=== PATIENT | male | born 1995 | race African-American/Black ===

== ENCOUNTER 2017-06-15 09:12 | Emergency (ER) | payer SELFPAY ==
[2017-06-15 09:18] VITALS: BP 140/81; PULSE 71; TEMP 98.1; BMI 25.6
[2017-06-15] MEDS ORDERED: TOBRAMYCIN 0.3% OPHTH SOLN 5 ML BOTTLE OS ONE (09:56)
[2017-06-15] MEDS ORDERED: ERYTHROMYCIN 0.5% OPHTHALMIC OINTMENT 3.5 GM TUBE OD ONE (09:56)
[2017-06-15] MEDS ORDERED: IBUPROFEN 600 MG TABLET (FP) PO ONE (09:57)
--- NOTE | 2017-06-15 10:01 | PDOC ---
History of Present Illness - General Chief Complaint: Eye Problem Stated Complaint: FOREIGN SUBSTANCE IN EYE Time Seen by Provider: 06/15/17 09:42 History Source: Patient Exam Limitations: No Limitations - History of Present Illness Initial Comments: 06/15/17 10:08 22 yr male with c/o red irritated eyes for one week after getting grease cutter solution in his eyes at work. Pt states he splashed it in his eyes at work accidentaly. Pt rubbed eyes now feels like there is sand in eyes with light sensitivity. Past History - Past Medical History Allergies/Adverse Reactions: Allergies Allergy/AdvReac Type Severity Reaction Status Date / Time No Known Allergies Allergy Verified 06/15/17 09:18 Home Medications: Ambulatory Orders Erythromycin 0.5% Eye Ointment [Erythromycin 0.5% Eye Ointment -] 1 applic OD QID #1 tube 06/15/17 Tobramycin 0.3% Ophth Soln [Tobrex Ophthalmic Solution -] 1 drop OS Q4HWA #1 bottle 06/15/17 Other medical history: NONE - Surgical History Abdominal Surgery: Yes (HERNIA) - Psycho/Social/Smoking Cessation Hx Suicidal Ideation: No Smoking History: Never smoked Hx Alcohol Use: Yes (SOCIAL) Drug/Substance Use Hx: No Substance Use Type: None Review of Systems - Review of Systems Able to Perform ROS?: Yes Is the patient limited Romanian proficient: No Constitutional: No: Symptoms Reported HEENTM: Yes: Symptoms Reported, Eye Pain Respiratory: No: Symptoms reported Cardiac (ROS): No: Symptoms Reported ABD/GI: No: Symptoms Reported : No: Symptoms Reported Musculoskeletal: No: Symptoms Reported Integumentary: No: Symptoms Reported *Physical Exam - Vital Signs Last Vital Signs Temp Pulse Resp BP Pulse Ox 98.1 F 71 20 140/81 99 06/15/17 09:15 06/15/17 09:15 06/15/17 09:15 06/15/17 09:15 06/15/17 09:15 - Physical Exam General Appearance: Yes: Nourished HEENT: positive: EOMI, NORMA, Other (bilateral conjunctival erythema injected bilaterally) Neck: negative: Tender Respiratory/Chest: positive: Lungs Clear, Normal Breath Sounds. negative: Chest Tender Cardiovascular: positive: Regular Rhythm, Regular Rate Extremity: positive: Normal Capillary Refill, Normal Inspection, Normal Range of Motion Integumentary: positive: Normal Color, Dry, Warm Neurologic: positive: skin installer II-XII NML intact, Fully Oriented, Alert, Normal Mood/ Affect, Motor Strength 5/5 Procedures - Eye Procedure Alcaine Drops Administered: Yes (2 drops) Progress: 06/15/17 10:13 pos fluroscein stain right eye abrasion 2mm Medical Decision Making - Medical Decision Making 06/15/17 10:16 cc: both eyes red, tearing painful sensitive to light no vision changes vision is 20/40 bilaterally, pt needs to wear prescription lenses but doesn't have them tetracaine placed with good relief of pain corneal abrasion to the right eye bilateral conjunctivitis strict follow up with eye , pt is to call today to make appointment in 48hrs *DC/Admit/Observation/Transfer Diagnosis at time of Disposition: Chemical conjunctivitis of both eyes Corneal abrasion, right Qualifiers: Encounter type: initial encounter Qualified Code(s): S05.01XA - Injury of conjunctiva and corneal abrasion without foreign body, right eye, initial encounter - Discharge Dispostion Disposition: HOME Condition at time of disposition: Good - Prescriptions Prescriptions: Erythromycin 0.5% Eye Ointment [Erythromycin 0.5% Eye Ointment -] 1 applic OD QID #1 tube Tobramycin 0.3% Ophth Soln [Tobrex Ophthalmic Solution -] 1 drop OS Q4HWA #1 bottle - Referrals Referrals: Barron Salinas [Staff Physician] - - Patient Instructions Additional Instructions: follow with the eye doctor call today to make appointment within the next 72hrs do not rub the eyes use the eye ointment to the right eye four times a day for 5 days use the drops to the left eye four times a day for 5 days take motrin as needed for pain protect eyes from bright light
[2017-06-15] MEDS ORDERED: IBUPROFEN 400 MG TABLET (FP) PO ONE (10:06)
== END 2017-06-15 10:16 | disposition home or self-care (01) ==
LOC: JERFT 09:12
PROC: 4A07X0Z Measurement of Visual Acuity, External Approach (ICD-10-PCS; principal; 2017-06-15)
DX: H10.213 Acute toxic conjunctivitis, bilateral (principal); S05.01XA Injury of conjunctiva and corneal abrasion without foreign body, right eye, initial encounter; Z77.098 Contact with and (suspected) exposure to other hazardous, chiefly nonmedicinal, chemicals; X58.XXXA Exposure to other specified factors, initial encounter; Y93.89 Activity, other specified; Y92.69 Other specified industrial and construction area as the place of occurrence of the external cause; Y99.0 Civilian activity done for income or pay
CPT/HCPCS: 99281-25